=== PATIENT | female | born 2000 | race Caucasian/White ===

== ENCOUNTER 2023-10-29 08:28 | Emergency (ER) | payer BC, SELFPAY ==
[2023-10-29 08:32] VITALS: BP 170/110; PULSE 122; RESP 20; O2SAT 100
[2023-10-29 08:43] VITALS: BP 170/110; PULSE 122; RESP 17; RESP 20; O2SAT 100
--- NOTE | 2023-10-29 08:52 | ED.GENADUL_ITS ---
Discharge Plan Disposition Patient Disposition: Home Condition: Good Discharge Details Clinical Impression: Angioma, venous, Left leg paresthesias, Arm paresthesia, left Primary Care Provider: Lala,Local ED Provider: Oliva Lacy Home Meds and New Rx's Prescriptions: Continued Excedrin Tension Headache 500-65 mg tablet 1 tab PO Q12H PRN acetaminophen [Tylenol] 325 mg tablet 325 mg PO Q4H PRN ibuprofen 200 mg capsule 200 mg PO TID-QID PRN Discharge Instructions Instructions: Paresthesia (ED) Additional Instructions: As we discussed, your labs and imaging are reassuring here today. Our neurologist is questioning if may be associated with complex migraine. She would like to see you in the clinic. Please call to schedule follow-up appointment, number listed below. I have also referred you to local primary care. Care management will assist in establishing primary care. Please keep a journal of your symptoms and what seems to make them worse or better. Please encourage hydration. If you develop any new or worsening symptoms please seek care urgently once again. The venous abnormality we discussed was noted on your MRI but is not thought to be associated with your altered sensation you have been having today. Neurology will discuss this with you further. Referrals: Adamaris Alfonso MD [ [facility]AFF [facility]YSICIAN] - [facility] General Date/Time Provider Initiated Documentation: 10/29/23 08:52 . Limitations to Documentation: no limitations . Information obtained by: patient, family (sister) and RN notes reviewed . History of Present Illness 23 year old F presents to the emergency department with the chief complaint of neuropathy LUE and LLE, described as moderate, Quality is described as other (about to fall asleep), and is localized to the left, upper extremity and lower extremity. Patient reports no radiation. Patient started experiencing this day(s) (3) and it has been intermittent. other things that improve symptom(s), (better in the AM) No exacerbating factors reported . Patient notes headaches (chronic CUELLAR, more frequent but no acute change int he headache severity); denies chest pain, diaphoresis, fever/chills, loss of appetite, malaise, nausea/vomiting, rash, seizure, shortness of breath, syncope and weakness. Patient did receive the following treatments prior to arrival, none Related Data Home Medications Medication Instructions Recorded Confirmed acetaminophen 325 mg tablet 325 mg PO Q4H PRN 10/29/23 10/29/23 (Tylenol) acetaminophen-caffeine 500 mg-65 1 tab PO Q12H PRN 10/29/23 10/29/23 mg tablet (Excedrin Tension Headache) ibuprofen 200 mg capsule 200 mg PO TID-QID PRN 10/29/23 10/29/23 Allergies Allergy/AdvReac Type Severity Reaction Status Date / Time No Known Allergies Allergy Unverified 10/29/23 08:35 General Stated Complaint: GenMedical MARTY: 3 Review of Systems Constitutional Constitutional: Reports as per HPI, Denies chills, Denies fever(s), Denies frequent falls, Reports headache(s) and Denies weakness Eyes Eyes: Reports as per HPI, Denies blurry vision and Denies change in vision ENT Ears, Nose, Mouth, and Throat: Denies vertigo, Reports headache(s) and Denies neck pain Cardiovascular Cardiovascular: Reports as per HPI, Denies chest pain, Denies radiating jaw, neck or arm pain and Denies dyspnea Respiratory Respiratory: Reports as per HPI, Denies chest congestion, Denies cough and Denies dyspnea Gastrointestinal Gastrointestinal: Reports as per HPI, Denies abdominal pain, Denies change in bowel habits, Denies nausea and Denies vomiting Musculoskeletal Musculoskeletal: Reports as per HPI, Denies back pain, Denies myalgias, Denies muscle cramps and Denies neck pain Integumentary/Breasts Skin/Breast: Reports as per HPI and Denies rash Neurologic Neurologic: Reports as per HPI, Denies abnormal movements, Denies abnormal speech, Denies behavioral changes, Denies confusion, Denies vertigo, Denies frequent falls, Reports headache(s), Denies localized weakness and Denies weakness Psychiatric Psychiatric: Denies behavioral changes and Denies confusion Exam Const General: cooperative, healthy appearing, no acute distress, well developed, well groomed and anxious Nutritional Appearance: well nourished and overweight Orientation: alert, awake and oriented x3 HENMT Head: normal to inspection, no palpable skull fracture, normocephalic and atraumatic Ears: hearing grossly normal bilaterally and external ears normal Mouth: oral mucosae normal and moist mucous membranes Throat: posterior oropharynx normal Eyes General: appearance normal, both eyes and all related structures Alignment and Position: alignment normal Periorbital: periorbital findings normal Eyelids: eyelids normal Sclera: sclerae normal Cornea: corneas normal Pupils: PERRL EOM: EOM intact bilaterally Neck Neck: normal visual inspection, full ROM, no lymphadenopathy and no meningeal signs Resp Effort & Inspection: normal respiratory effort, able to speak in complete sentences and no respiratory distress Auscultation: clear to auscultation bilaterally, no rales, no rhonchi and no wheezes Cardio Rate: regular rate Rhythm: regular rhythm Heart Sounds: S1 normal and S2 normal Back/Spine/Pelvis Cervical Spine: normal cervical lordosis and cervical ROM normal Skin General skin exam: no rashes or lesions noted Neuro General: patient alert, patient awake and patient oriented x3 Cranial Nerves: CN's II-XI intact bilaterally Cognition: normal cognition Speech: speech normal Gait: normal gait Motor: muscle tone normal throughout, strength 5/5 throughout, no pronator drift, no movement abnormalities noted and no fasciculations Sensory Exam: no sensory deficits noted DTR's: Rt Triceps: 1+, Lt Triceps: 1+, Rt Biceps: 1+, Lt Biceps: 1+, Rt Brachioradialis: 1+, Lt Brachioradialis: 1+, Rt Patellar: 2+, Lt Patellar: 2+, Rt Ankle: 2+ and Lt Ankle: 2+ Plantar Reflexes: Downgoing: bilateral Coordination: [id number] test normal and [id number] test normal Extrem General: normal to inspection, capillary refill normal, no pedal edema and no calf tenderness Psych Appearance: grossly normal and well kempt Mental Status: mental status grossly normal Speech and Movement: speech and movement normal Mood: anxious mood Course Vital Signs Vital signs: Vital Signs Pulse 122 H 10/29/23 08:32 Respiratory Rate 20 10/29/23 08:32 Blood Pressure 170/110 H 10/29/23 08:32 Pulse Oximetry 100 10/29/23 08:32 Pulse 122 H 10/29/23 08:43 Respiratory Rate 17 10/29/23 08:43 Respiratory Effort Normal 10/29/23 08:45 Respiratory Depth Normal 10/29/23 08:43 Respiratory Pattern Normal 10/29/23 08:43 Blood Pressure 170/110 H 10/29/23 08:43 Blood Pressure Position Sitting 10/29/23 08:43 Pulse Oximetry 100 10/29/23 08:43 Oxygen Delivery Method Room Air 10/29/23 08:43 Oxygen Flow Rate 0 10/29/23 08:43 Pain Level 0 10/29/23 08:43 Medical Decision Making Patient is a pleasant 23-year-old female, companied by her sister, otherwise healthy, presenting with chief complaint of left upper extremity and left lower extremity numbness. She reports that this began 2 days ago. States that she awoke 2 days ago feeling normal but then about an hour after waking, began having sensation similar to that as her arm about to fall asleep. States that this is then affected the entirety of the left upper extremity. Denied actually actual numbness. Never had a weak sensation. Patient is right-hand dominant. States that yesterday she had the same thing, again beginning about an hour after waking. Also having some sensory changes in the left lower extremity, primarily in the left calf. Denies any numbness or tingling in the foot. No weakness. No change in her ambulatory status. No balance issues. Has chronic headaches which she state may be more frequent over the past few months but no change in quality or severity. Denies being sexually active. No recent illness or chnage in bowel or urinary habits. States that this AM, symptoms ahve not really increased, is not having the sensory deficits like she was yesterday. Denies fevers/chills, neck pain, rash. No new medications, diet changes, dietary supplements. Is new to the area from [facility]. No previous diagnoses although she reports anxiety. She has had increase in stress with move, new job, money issues. States she can become dizzy occasionally. On exam, patient is tearful, appears anxious and nervous. Does not appear acutely ill. She reports that her symptoms are currently very very mild, barely noticeable. She does not have any deficits on exam. No cerebellar issues. Cranial nerves are all intact. No reproducible sensory deficits or alterations particular in the left upper and lower extremities. She also been complaining of some intermittent dizziness, fairly vague neuro logic complaints, considered MS. She has not had any recent illness, symptoms or not bilateral. No indication of Guillain-San? at this time. While she does have headaches, no significant changes, very low suspicion for mass. As these symptoms are inconsistent, not consistent with a TIA. She initially been concern for potential heart disease but this does not correlate with her clinical exam and history. EKG was obtained and reviewed by myself and ED physician with no acute ischemic changes appreciable. She has not had any chest pain palpitations. Also considered electrolyte dysfunction, hypothyroidism there is other metabolic disorder. Considered atypical Lyme presentation. Lastly, consider psychogenic source such as increased anxiety although the persistence of the symptoms does not necessarily correlate with times of increased stress for the patient. Patient works in a dental hygienist and suffered a needlestick about 6 months ago. She reports that she was advised to have hepatitis and HIV testing but did not get this completed. Will also order these test. Given the length of time since the initial exposure, will obtain chronic panel. Will also have patient follow-up with primary care and establish local care. Labs reviewed. Patient does have a slight leukocytosis with a white count of 14. This does not clinically correlate as the patient does not have any evidence of meningitis. She has not had any headaches currently. Does not appear systemically ill. She denies other infectious symptoms. TSH within normal limits. B12 within normal limits. Urine has contamination. Lyme, HIV and hepatitis pending. Patient states that she has some very mild claustrophobia, will give oral ativan. MRI reviewed by radiologist: VENTRICLES AND EXTRA AXIAL SPACES: Normal in size and morphology for the patient's age. HEMORRHAGE: There is a web-like collection of veins in the high right parietal lobe draining into a larger vein which subsequently drains into a dural sinus. Its appearance is most consistent with a vascular malformation such as a venous angioma. There is enhancement of the venous angioma on the postcontrast images. CEREBRAL PARENCHYMA: No focus of restricted diffusion to suggest acute infarct. No space-occupying lesion identified. There is normal signal in the brain. No periventricular hyperintensities are seen on the FLAIR or T2 weighted images. MIDLINE SHIFT: None. BRAINSTEM/CEREBELLUM: Normal. CALVARIUM: Normal. ENHANCEMENT: Please see the above discussion under hemorrhage. VISUALIZED PARANASAL SINUSES/MASTOIDS: Mucous retention cyst is seen in the right maxillary sinus. The remaining visualized paranasal sinuses are clear. [place] OF [place]RA: Normal flow void. PITUITARY GLAND: Unremarkable. OTHER FINDINGS: IMPRESSION: 1. No MRI findings to suggest MS. 2. Findings most consistent with a venous angioma in the high right parietal lobe. 3. No evidence of an acute infarct or enhancing mass. With this affecting the area that would correlate with her sensory issues, will touch base with neurology. Consulted with neurologist. She reviewed the case, advises that the structural abnormalities are not consistent with what patient is endorsing. She advised that the patient's chronic headaches, questioning if this may be more of a complex migraine. Is happy to see the patient in the office as an outpatient. Discussed these findings with the patient. Again, no evidence to suggest encephalitis or meningitis at this time. She will follow-up with neurology. Encouraged supportive care. Return cautions were discussed. Tick and Lyme panel, hepatitis and HIV are still pending. Again, hepatitis and HIV are pending from previous needlestick. I did encourage that she discuss this further with his primary care. Referral for local primary care was also placed. All of her questions and concerns were addressed patient is in agreement this plan. Quality:SDOH Health Related Social Needs: No Data to Display PFSH All Active Problems (Updated 10/29/23 @ 13:04 by CYRIL Cross) Arm paresthesia, left (Acute) Left leg paresthesias (Acute) Angioma, venous (Acute) Social History Smoking/Tobacco Use Status: Never Smoking risk assessment performed?: Yes Drug use: Socially Substance use type: marijuana Details: Hasn't used in months PAWSS Have you Been Recently Intoxicated or Drunk Within the Last 30 days?: No Have you Ever Experienced Previous Episodes of Alcohol Withdrawal?: No Have you ever Experienced Withdrawal Seizures?: No Have you ever Experienced Delirium Tremens(DT)s?: No Have you ever undergone Alcohol Rehabilitation Treatment (i.e, inpt ot outpatient treatment programs)?: No Have you ever Experienced Blackouts?: No Have you ever Combined Alcohol with other Downers within the last 90 days?: No Have you ever Combined Alcohol with any other Substance of Abuse during the last 90 days?: No Result: 0
--- NOTE | 2023-10-29 09:15 | RT.EKG_ITS ---
APPROVED REPORT Exam: Resting ECG Reason for Exam: tingling Patient Location: E HR:95 bpm ECG Measurements Heart Rate 95 AXIS MT 143 P 48 QRSd 83 QRS 4 QT 336 T 9 QTc 423 Conclusion Sinus rhythm...normal P axis, V-rate 60- 99 sinus rhtyhm, normal axis, normal intervals, non ischemic
--- NOTE | 2023-10-29 09:30 | DI.MRI_ITS ---
Exam(s) MR BRAIN WO/W EXAM: MR BRAIN WO/W CLINICAL HISTORY: numbness LUE, LLE TECHNIQUE: Multiplanar multisequence MRI of the brain was performed. CONTRAST MATERIAL: IV Contrast: 20 mL of Dotarem contrast administered. COMPARISON: No exams were available for comparison FINDINGS: VENTRICLES AND EXTRA AXIAL SPACES: Normal in size and morphology for the patient's age. HEMORRHAGE: There is a web-like collection of veins in the high right parietal lobe draining into a l arger vein which subsequently drains into a dural sinus. Its appearance is most consistent with a va scular malformation such as a venous angioma. There is enhancement of the venous angioma on the post contrast images. CEREBRAL PARENCHYMA: No focus of restricted diffusion to suggest acute infarct. No space-occupying le chucky identified. There is normal signal in the brain. No periventricular hyperintensities are seen o n the FLAIR or T2 weighted images. MIDLINE SHIFT: None. BRAINSTEM/CEREBELLUM: Normal. CALVARIUM: Normal. ENHANCEMENT: Please see the above discussion under hemorrhage. VISUALIZED PARANASAL SINUSES/MASTOIDS: Mucous retention cyst is seen in the right maxillary sinus. T he remaining visualized paranasal sinuses are clear. SAM[place] OF YBARRA: Normal flow void. PITUITARY GLAND: Unremarkable. OTHER FINDINGS: IMPRESSION: 1. No MRI findings to suggest MS. 2. Findings most consistent with a venous angioma in the high right parietal lobe. 3. No evidence of an acute infarct or enhancing mass. DATA REPOSITORY:
[2023-10-29 09:46] LABS: Abs Immature Grans 0.08 10^3/uL (0.0-0.06); Absolute Eosinophil Count 0.21 10^3/uL (0.0-0.7); Absolute Lymphocyte Count 3.06 10^3/uL (1.2-3.4); Absolute Monocyte Count 0.95 10^3/uL (0.1-0.8); Basophils % 0.5; Eosinophils % 1.4; HCT 46.3 % (36.0-46.0); HGB 14.6 g/dL (11.2-15.7); Immature Grans % 0.5; Lymphocytes % 20.6; MCH 24.9 pg (27.0-33.0); MCHC 31.5 % (32.0-36.0); MCV 79 fL (80-95); MPV 9.4 fL (8.0-11.0); Monocytes % 6.4; Neutrophils % 70.6; Platelet Count 387 10^3/uL (130-400); RBC 5.86 10^6/uL (3.93-5.22); RDW 13.2 % (11.7-14.6); RDW-SD 37.4 fL; WBC 14.84 10^3/uL (4.4-10.8)
[2023-10-29 09:47] LABS: Absolute Basophil Count 0.07 10^3/uL (0.0-0.2); Absolute Neutrophil Count 10.48 10^3/uL (1.2-6.7)
[2023-10-29 10:18] LABS: Bilirubin Negative (Negative); Blood Small (Negative); Clarity Sl Cloudy (Clear); Glucose Negative (Negative); Ketones Negative (Negative); Leukocyte Esterase Moderate (Negative); Nitrite Negative (Negative); Specific Gravity >= 1.030 (1.005-1.025); Urobilinogen 0.2 mg/dL (Up to 0.2); pH 5.5 (5-8)
[2023-10-29 10:27] LABS: ALT 22 U/L (14-59); AST 15 U/L (15-37); Albumin 3.9 g/dL (3.4-5.0); Alkaline Phosphatase 143 U/L (46-116); Anion Gap 13.2 mmol/L (3-11); BUN 9 mg/dL (7-18); Bilirubin, Total 0.3 mg/dL (0.2-1.0); CO2 23.8 mmol/L (21.0-32.0); CREATININE 0.8 mg/dL (0.55-1.02); Calcium 9.6 mg/dL (8.5-10.1); Chloride 104 mmol/L (98-107); Estimated GFR 106.77 (mL/min/1.73m2); Glucose 96 mg/dL (74-106); Sodium 141 mmol/L (136-145); TSH (W/Ref FT4) 1.58 uIU/mL (0.36-3.74); Total Protein 8.4 g/dL (6.4-8.2); Vitamin B12 523 pg/mL (193-986)
[2023-10-29 10:28] LABS: Bacteria Moderate HPF (Negative); C & S Indicated? No/Sq. Contamination; Casts Negative LPF (Negative); Crystals Negative HPF (Negative); Epithelial Cells Many HPF (Negative); Mucus Negative (Negative)
[2023-10-29] MEDS: LORazepam 0.5 MG TAB PO (10:47)
[2023-10-29] MEDS: Normal Saline Flush 10 ML SYR IVP (11:19)
[2023-10-29] MEDS: Gadoterate meglumine 20 ML SYRINGE IVP (11:20)
--- NOTE | 2023-10-29 13:03 | NUR.NOTE ---
Referral faxed to Neurology for follow up to headaches and paraseizures in 1-2 weeks.
[2023-10-29 13:20] VITALS: BP 126/83; PULSE 91; RESP 16; O2SAT 97
[2023-10-29 19:37] LABS: HIV-1/2 Ag & Ab Screen Negative (Negative)
[2023-10-29 19:40] LABS: HBs Antibody, Qual Positive (See Note); HBs Antibody, Quant 28.9 mIU/mL (See Note); Hepatitis B Core Antibody Negative (Negative); Hepatitis B surface Ag Negative (Negative); Hepatitis C Ab w Rflx HCV PCR Negative (Negative)
[2023-10-30 11:04] LABS: Lyme Ab w Rflx to Lyme Confirm Negative (Negative)
[2023-10-31 18:12] LABS: Anaplasma phagocytophilum Negative (Negative); B. miyamotoi PCR Negative (Negative); Babesia divergens/MO-1 Negative (Negative); Babesia duncani Negative (Negative); Babesia microti Negative (Negative); Ehrlichia chaffeensis Negative (Negative); Ehrlichia ewingii/canis Negative (Negative); Ehrlichia muris eauclairensis Negative (Negative)
== END 2023-10-29 13:21 | disposition home or self-care (01) ==
PROVIDERS: Emergency Provider Physician Assistant
DX: Q28.3 Other malformations of cerebral vessels (principal); R20.2 Paresthesia of skin
CPT/HCPCS: 70553; 80053; 86704; 86706; 86803; 87340; 87389; 87798; 93005; 99285; 81003; 81015; 82607; 83735; 84443; 85025; 86618; 93010; 99284

== ENCOUNTER 2024-03-07 11:04 | Outpatient (REF) | payer BC, SELFPAY | END 2024-03-07 11:05 | disposition home or self-care (01) | LOC: LBN 11:04 | PROVIDERS: PCP Nurse Practitioner Family; Visit Provider Nurse Practitioner Family | DX: R30.9 Painful micturition, unspecified (principal); R82.998 Other abnormal findings in urine | CPT/HCPCS: 87086; 87480; 87510; 87660 ==

== ENCOUNTER 2024-08-29 15:01 | Outpatient (RCR) | payer BC, SELFPAY | END 2024-08-29 23:59 | disposition home or self-care (01) | LOC: CARDOPNVT 15:01 | PROVIDERS: PCP Nurse Practitioner Family; Visit Provider Internal Medicine Cardiovascular Disease | DX: R00.2 Palpitations (principal); I49.1 Atrial premature depolarization | CPT/HCPCS: 93225 ==

== ENCOUNTER 2024-08-30 10:04 | Outpatient (RCR) | payer BC, SELFPAY ==
--- NOTE | 2024-09-16 11:37 | W.HOLTRPT ---
Date of service: 09/16/24 Time of Service: 11:37 Holter Monitor Report Referring Provider:: Varsha Pearson Indications:: Palpitations Holter Monitor Note: This is a 48-hour Holter monitor. Rhythm throughout was sinus with an average heart rate of 76. Minimum was 48, maximum 164. There was an isolated premature ventricular contraction. A total of 28 premature atrial contractions were recorded. There was no atrial fibrillation, no high-grade AV block, no pauses greater than 3 seconds. Symptoms were reported. 1 correlated to sinus rhythm in the 60s, the other to sinus rhythm in the 80s
== END 2024-09-26 23:59 | disposition home or self-care (01) ==
LOC: CARDOPNVT 10:04
PROVIDERS: PCP Nurse Practitioner Family; Visit Provider Internal Medicine Cardiovascular Disease
DX: R00.2 Palpitations (principal); I49.1 Atrial premature depolarization
CPT/HCPCS: 93226

== ENCOUNTER 2025-02-27 02:19 | Outpatient (CLI) | payer BC, SELFPAY ==
[2025-02-27 18:12] LABS: Glucose 78 mg/dL (74-106)
[2025-02-27 18:16] LABS: Iron 47 ug/dL (50-170); Total Iron Binding Capacity 279 ug/dL (250-450); Transferrin Sat 17 % (15-50)
[2025-02-27 18:28] LABS: Calculated LDL 90 mg/dL (<100); Cholesterol 157 mg/dL (<200); Ferritin 73 ng/mL (8-252); HDL Cholesterol 61 mg/dL (>or=50); Triglyceride 33 mg/dL (<150)
[2025-03-02 09:46] LABS: HIV-1/2 Ag & Ab Screen Negative (Negative)
[2025-03-02 09:58] LABS: Hepatitis C Ab w Rflx HCV PCR Negative (Negative)
== END 2025-02-27 02:20 | disposition home or self-care (01) ==
LOC: LBO 02:19
PROVIDERS: PCP Nurse Practitioner Family; Visit Provider Nurse Practitioner Family
DX: W46.0XXA Contact with hypodermic needle, initial encounter (principal); Z00.00 Encounter for general adult medical examination without abnormal findings; R89.9 Unspecified abnormal finding in specimens from other organs, systems and tissues
CPT/HCPCS: 36415; 80061; 82947; 86803; 87389; 82728; 83540; 83550